=== PATIENT | female | born 1990 | race Two or more races ===

== ENCOUNTER 2018-12-15 12:24 | Outpatient (CLI) | payer OTHER | END 2018-12-15 12:32 | disposition home or self-care (01) | LOC: LAB 12:24 | DX: Z34.80 Encounter for supervision of other normal pregnancy, unspecified trimester (principal) ==

== ENCOUNTER 2018-12-20 08:52 | Outpatient (CLI) | payer OTHER | END 2018-12-20 10:09 | disposition home or self-care (01) | LOC: NST 08:52 | DX: Z34.83 Encounter for supervision of other normal pregnancy, third trimester (principal) ==

== ENCOUNTER → 2018-12-24 | Outpatient (CLI) | payer OTHER ==
[~2018-12-24] MED LIST: PRENATABS RX T1 EACH PO
== END | disposition home or self-care (01) ==
LOC: OBS/DEL 19:09
DX: O47.1 False labor at or after 37 completed weeks of gestation (principal); Z34.83 Encounter for supervision of other normal pregnancy, third trimester

== ENCOUNTER 2018-12-29 10:32 | Outpatient (CLI) | payer OTHER | END 2018-12-29 11:16 | disposition home or self-care (01) | LOC: NST 10:32 | DX: Z34.83 Encounter for supervision of other normal pregnancy, third trimester (principal) ==

== ENCOUNTER 2018-12-29 12:30 | Inpatient (IN) | payer OTHER ==
[~2018-12-29] VITALS: Ht 170.2 cm; Wt 85.7 kg
== END 2019-01-05 12:28 | disposition home or self-care (01) | DRG 807 ==
LOC: LDR 01-03 01:51 → OB/GYN 01-03 01:51 → LDR 01-11 12:30
PROVIDERS: ADMIT Specialist
PROC: 10E0XZZ Delivery of Products of Conception, External Approach (ICD-10-PCS; principal; 2019-01-03)
PROC: 4A1HXCZ Monitoring of Products of Conception, Cardiac Rate, External Approach (ICD-10-PCS; 2019-01-03)
DX: O80 Encounter for full-term uncomplicated delivery (principal); Z37.0 Single live birth; Z3A.38 38 weeks gestation of pregnancy